=== PATIENT | female | born 1960 | race Caucasian/White ===

== ENCOUNTER → 2016-12-02 | Outpatient (CLI) | payer BC ==
[~2016-12-02] MED LIST: ASPIRIN 81M81 MG/TA2 PO; CALCIUM + D 6001 TAB; ESTRACE 1MG1 MG/TAB PO; GARLIC OIL NA1000 MG PO; IRON TABLETS325 MG PO; KOMBIGLYZE XR 11 TER PO; LIPITOR 40MG TA40 MG PO; MAGNESIUM250 M1 PO; MAREPA1200 MG PO; MEGA MULTIVITAM1 TAB PO; PRINZIDE 12.5 M1 TA1 PO; VITAMIN C500 MG PO
== END ==
LOC: MC.RAD 15:40
DX: Z12.31 Encounter for screening mammogram for malignant neoplasm of breast (principal)

== ENCOUNTER → 2018-02-06 | Outpatient (CLI) | payer OTHER | LOC: MC.RAD 09:21 | DX: Z12.31 Encounter for screening mammogram for malignant neoplasm of breast (principal) ==